=== PATIENT | female | born 1995 | race Hispanic/Latino ===

== ENCOUNTER 2019-07-25 06:03 | Inpatient (IN) ==
[2019-07-25] MEDS ORDERED: PEPCID PO PRN ×2 (06:22)
[2019-07-25] MEDS ORDERED: PEPCID IV PRN (06:22)
[2019-07-25] MEDS ORDERED: KEFZOL 1 GM/D5W 1 GM/50 ML IVPB IV PRN (06:22)
[2019-07-25] MEDS ORDERED: REGLAN PO PRN (06:22)
[2019-07-25] MEDS ORDERED: ZOFRAN IV PRN (06:22)
[2019-07-25] MEDS ORDERED: STADOL IV PRN (06:22)
[2019-07-25] MEDS ORDERED: LR 1,000 ML ONE (06:23)
[2019-07-25] MEDS ORDERED: XYLOCAINE-MPF 1% INJ ONE (06:26)
[2019-07-25] MEDS ORDERED: SODIUM CHLORIDE 0.9% INJ SCH (06:30)
[2019-07-25] MEDS ORDERED: LR 1,000 ML IV SCH (06:30)
[2019-07-25] MEDS ORDERED: PITOCIN 30 UNITS/NS 30 UNIT/500 ML IV.SOLN IV SCH ×2 (06:30→09:45)
[2019-07-25 06:43] LABS: BASO# 0.01 X1000 (0.0-0.2); BASO% 0.2 % (0.0-0.8); EOS# 0.02 X1000 (0.0-0.7); EOS% 0.4 % (0.0-10.0); HEMOGLOBIN 10.2 g/dL (12.0-16.0); IMM GRAN# 0.02 X1000 (0.0-0.04); IMM GRAN% 0.4 % (0.0-0.5); LYMPH# 1.24 X1000 (1.2-3.4); LYMPH% 23.1 % (20.5-51.1); MCH 27.4 PG (27-31); MCHC 31.9 g/dL (33-37); MONO# 0.14 X1000 (0.11-0.59); MONO% 2.6 % (1.7-9.3); MPV 13.4 FL (7.4-10.4); NEUT# 3.93 X1000 (1.4-6.5); NEUT% 73.3 % (42.2-75.2); PLT 155 X1000 (130-400); RBC 3.72 XMIL (4.2-5.4); WBC 5.36 X1000 (4.8-10.8)
[2019-07-25 06:50] LABS: BILIRUBIN URINE SMALL (NEGATIVE); BLOOD URINE NEGATIVE (NEGATIVE); CLARITY CLEAR (CLEAR); COLOR YELLOW; GLUCOSE URINE NEGATIVE (NEGATIVE); KETONE URINE NEGATIVE (NEGATIVE); LEUKOCYTES URINE SMALL (NEGATIVE); NITRITE URINE NEGATIVE (NEGATIVE); PH URINE 6.5; PROTEIN URINE TRACE mg/dL (NEGATIVE); URINE SOURCE VOIDED; UROBILINOGEN URINE 0.2 EU/dL (0.2-1.0)
[2019-07-25 07:13] LABS: RUBELLA SCREEN NON IMMUNE (IMMUNE)
[2019-07-25 07:15] LABS: RAPID HIV PRESUMPTIVE NEGATIVE
[2019-07-25 07:21] LABS: RPR NON-REACTIVE (NONREACTIVE)
[2019-07-25] MEDS ORDERED: PITOCIN 20 UNITS/NS 20 UNITS/1,000 ML IV.SOLN ONE (08:34)
[2019-07-25] MEDS ORDERED: PITOCIN 20 UNITS/NS 20 UNITS/1,000 ML IV.SOLN IV SCH ×2 (08:45→09:45)
[2019-07-25] MEDS ORDERED: HYDROXYZINE IM PRN (09:39)
[2019-07-25] MEDS ORDERED: AMBIEN PO PRN (09:39)
[2019-07-25] MEDS ORDERED: XYLOCAINE-MPF 1% INJ PRN (09:39)
[2019-07-25] MEDS ORDERED: BENADRYL IV PRN (09:39)
[2019-07-25] MEDS ORDERED: PERI MEDS (DERMOPLAST/NUPERCAINAL/TUCKS) MISC PRN (09:39)
[2019-07-25] MEDS ORDERED: ATARAX PO PRN (09:39)
[2019-07-25] MEDS ORDERED: MINERAL OIL PO PRN (09:39)
[2019-07-25] MEDS ORDERED: BENADRYL PO PRN (09:39)
[2019-07-25] MEDS ORDERED: BOOSTRIX VACCINE IM ONE (09:39)
[2019-07-25] MEDS ORDERED: CYTOTEC PO PRN (09:39)
[2019-07-25] MEDS ORDERED: M-M-R II VACCINE SUBQ ONE (09:39)
[2019-07-25] MEDS ORDERED: PITOCIN IM PRN (09:39)
[2019-07-25] MEDS: MOTRIN PO PRN ×2 (10:32→21:11)
[2019-07-25] MEDS: STADOL IV ONE ×2 (12:29→12:51)
[2019-07-25 12:30] LABS: UR AMPHETAMINES QUAL NONE DETECTED (NONE DETECT); UR BARBITUATES QUAL NONE DETECTED (NONE DETECT); UR BENZODIAZEPIN QUAL NONE DETECTED (NONE DETECT); UR CANNABINOIDS QUAL NONE DETECTED (NONE DETECT); UR COCAINE QUAL NONE DETECTED (NONE DETECT); UR METHADONE QUAL NONE DETECTED (NONE DETECT); UR OPIATES QUAL NONE DETECTED (NONE DETECT); UR OXYCODONE QUAL NONE DETECTED (NONE DETECT); UR PCP QUAL NONE DETECTED (NONE DETECT)
[2019-07-25] MEDS ORDERED: METHERGINE IM ONE (12:58)
[2019-07-25] MEDS ORDERED: METHERGINE ONE (13:04)
--- NOTE | 2019-07-25 13:32 | HISTORY AND PHYSICAL ---
DATE OF PRESENTATION: 07/25/2019 HISTORY OF PRESENT ILLNESS: Ms. Maximino Chaidez is a 23-year-old G 4 P 3-0-0-3 at suspected term gestational age who presents to Labor and Delivery in active labor and no care. The patient reports contractions started at 2 a.m. today and progressively gotten closer in frequency and intensity. Reports good movements. Denies leakage of fluid or vaginal bleeding. PAST MEDICAL HISTORY: None. MEDICATIONS: vitamin. PAST SURGICAL HISTORY: None. ALLERGIES: No known drug allergies. OBSTETRICAL HISTORY: G 4 P 3, 3 prior vaginal deliveries. BILLER HISTORY: Denies STD exposure. SOCIAL HISTORY: Denies tobacco, alcohol, or drug use. FAMILY HISTORY: Noncontributory. VITAL SIGNS: Temperature 98.5 degrees Fahrenheit, pulse rate 73, respiration rate 19, blood pressure 121/78, O2 saturation 99% on room air. Weight 120 pounds, height 5 feet 4 inches, body mass index 26.9 kg/m2. PHYSICAL EXAMINATION: GENERAL: No acute distress, alert, awake, oriented x3. CARDIOVASCULAR: Regular rate and rhythm. Positive S1, S2. RESPIRATORY: Clear to auscultation bilaterally. Negative rhonchi, rales, or wheezing. ABDOMEN: Gravid, nontender to palpation. Contraction palpable. EXTREMITIES: No calf tenderness. STERILE VAGINAL EXAM: 10 cm dilated, 100% effaced, 0 station. Electronic monitoring: Category 1 tracing. LABORATORY: WBC is 5.36, hemoglobin 10.2, hematocrit 32, platelets 155. Glucose 95. Urine drug screen negative. RPR nonreactive. HIV negative. Rubella nonimmune. ASSESSMENT: Mrs. Maximino Chaidez is a 23-year-old 4 para 3-0-0-3 at suspected term gestational age who presents in active labor. PLAN: 1. Admit to Labor and Delivery for anticipated vaginal delivery. 2. Obtain labs for no care and routine labor labs. 3. Continue with electronic monitoring. 4. Patient counseled on risks of vaginal delivery not limited to bleeding, laceration, infection, and need for emergency delivery. The patient understands the risks and agrees to procedure. 5. IV ampicillin for prophylaxis. GBS unknown status.
--- NOTE | 2019-07-25 16:20 | OPERATIVE NOTE ---
PROCEDURE DATE: 07/25/2019 SURGEON: Dr. Philippe Melgar. WOOD PATTERNMAKER: None. PROCEDURE PERFORMED: Spontaneous vaginal delivery of twins. DESCRIPTION OF PROCEDURE: The patient delivered a viable male infant weighing 4 pounds 5 ounces with Apgars of 9 and 9 at 1 and 5 minutes respectively. The vertex was delivered spontaneously over intact perineum. No nuchal cord was identified. The anterior shoulders were delivered atraumatically by maternal expulsive efforts and the assistance of downward traction. The posterior shoulder delivered with maternal expulsive efforts and upward traction. The remainder of the fetus delivered spontaneously. Upon delivery the cord was clamped and cut. The was passed to the waiting tanning consultant staff. Cord blood was obtained for analysis. After cord was blood was obtained, the patient noted to be pushing and a 2nd gestational sac appeared at the perineum. Water Commissioner staff was informed of expected delivery of Baby B twin. Positioning of Baby B was identified and vertex prior to rupture of membranes status post ruptured membranes revealed clear amniotic fluid from baby B. The patient delivered a viable 2nd male weighing 5 pounds 10 ounces with Apgars of 9 and 10 at 1 and 5 minutes respectively. The vertex was delivered spontaneously over intact perineum. A loose nuchal cord was identified and reduced. The anterior shoulder was delivered atraumatically by maternal expulsive efforts with the assistance of downward traction. The posterior shoulder delivered with maternal expulsive efforts and upward traction. The remainder of the fetus delivered spontaneously. Upon delivery the cord was clamped and cut. The infant was passed to the waiting tanning consultant staff. Cord blood was obtained for analysis and both cords were marked appropriately to identify each cord as fetus A and fetus B cord. The placenta was then delivered spontaneously intact, a 3 vessel cord was noted x2. To enhance uterine contraction IV oxytocin was administered. The cervix, vagina and perineum were inspected for lacerations. A first-degree perineum laceration was identified. 1% lidocaine was injected, laceration repaired with 2-0 chromic in a running nonlocking fashion to reapproximate the laceration in layers. Good hemostasis was confirmed.
[2019-07-25 16:27] LABS: HIV ANTIBODY SCREEN SEE COMMENTS
[2019-07-25] MEDS: TYLENOL PO PRN (18:20)
[2019-07-25] MEDS: METHERGINE PO SCH ×2 (18:52→22:39)
[2019-07-25 20:12] LABS: BASO# 0.01 X1000 (0.0-0.2); BASO% 0.2 % (0.0-0.8); IMM GRAN# 0.03 X1000 (0.0-0.04); IMM GRAN% 0.5 % (0.0-0.5); LYMPH% 15.6 % (20.5-51.1); MCH 27.5 PG (27-31); MCV 85.9 FL (81-99); MONO# 0.28 X1000 (0.11-0.59); MONO% 4.4 % (1.7-9.3); MPV 12.6 FL (7.4-10.4); NEUT# 5.11 X1000 (1.4-6.5); NEUT% 79.3 % (42.2-75.2); PLT 111 X1000 (130-400); RBC 2.91 XMIL (4.2-5.4); RDW 12.8 % (11.5-14.5); WBC 6.43 X1000 (4.8-10.8)
[2019-07-25] MEDS: PERICOLACE PO SCH (21:11)
[2019-07-26] MEDS: METHERGINE PO SCH (01:01)
[2019-07-26] MEDS ORDERED: METHERGINE PO ONE (07:00)
[2019-07-26 07:38] LABS: BASO# 0.01 X1000 (0.0-0.2); BASO% 0.2 % (0.0-0.8); EOS# 0.04 X1000 (0.0-0.7); EOS% 0.7 % (0.0-10.0); HEMATOCRIT 24.6 % (37.0-47.0); HEMOGLOBIN 7.7 g/dL (12.0-16.0); LYMPH% 22.8 % (20.5-51.1); MCH 27.1 PG (27-31); MCHC 31.3 g/dL (33-37); MCV 86.6 FL (81-99); MONO# 0.26 X1000 (0.11-0.59); MONO% 4.6 % (1.7-9.3); MPV 12.6 FL (7.4-10.4); NEUT# 4.09 X1000 (1.4-6.5); NEUT% 71.7 % (42.2-75.2); PLT 117 X1000 (130-400); RBC 2.84 XMIL (4.2-5.4); RDW 12.9 % (11.5-14.5)
--- NOTE | 2019-07-26 10:34 | OB/GYN PROGRESS NOTE ---
Progress Note OB - . OB Progress Note: Vital Signs - 24 hr 07/25/19 10:45 07/25/19 11:42 07/25/19 12:45 Temperature 99.2 F Pulse Rate 66 65 65 Respiratory Rate 20 20 20 Blood Pressure 136/61 135/77 126/78 O2 Sat by Pulse Oximetry 100 100 100 07/25/19 12:50 07/25/19 13:00 07/25/19 13:10 Temperature Pulse Rate 63 65 62 Respiratory Rate 20 20 20 Blood Pressure 116/63 121/63 103/59 O2 Sat by Pulse Oximetry 99 99 99 07/25/19 13:30 07/25/19 13:50 07/25/19 14:00 Temperature 98.3 F Pulse Rate 53 L 55 L 53 L Respiratory Rate 20 20 20 Blood Pressure 144/92 147/88 142/69 O2 Sat by Pulse Oximetry 100 99 100 07/25/19 14:54 07/25/19 15:06 07/25/19 15:58 Temperature 97.8 F 97.1 F L Pulse Rate 61 56 L 62 Respiratory Rate 20 20 20 Blood Pressure 131/85 133/83 130/71 O2 Sat by Pulse Oximetry 100 100 100 07/25/19 16:56 07/25/19 18:06 07/25/19 20:00 Temperature 98.3 F 97.2 F L Pulse Rate 69 59 L 58 L Respiratory Rate 20 20 16 Blood Pressure 115/74 131/69 105/55 O2 Sat by Pulse Oximetry 100 100 100 07/26/19 00:00 07/26/19 04:00 07/26/19 07:25 Temperature 96.3 F L 98.1 F 97.2 F L Pulse Rate 62 64 65 Respiratory Rate 14 14 16 Blood Pressure 105/64 106/68 135/65 O2 Sat by Pulse Oximetry 100 100 100 Laboratory Results - last 24 hr 07/25/19 07/25/19 07/25/19 06:20 07:21 20:05 WBC 6.43 RBC 2.91 L Hgb 8.0 L D Hct 25.0 L D MCV 85.9 MCH 27.5 MCHC 32.0 L RDW Std Deviation 12.8 Plt Count 111 L MPV 12.6 H Immature Gran % (Auto) 0.5 Neut % (Auto) 79.3 H Lymph % (Auto) 15.6 L [place] % (Auto) 4.4 Eos % (Auto) 0.0 Baso % (Auto) 0.2 Immature Gran # (Auto) 0.03 Neut # (Auto) 5.11 Lymph # (Auto) 1.00 L [place] # (Auto) 0.28 Eos # (Auto) 0.00 Baso # (Auto) 0.01 Urine Opiates Screen NONE DETECTED Ur Oxycodone Screen NONE DETECTED Ur Methadone, Qual NONE DETECTED Ur Barbiturates Screen NONE DETECTED Ur Phencyclidine Scrn NONE DETECTED Ur Amphetamines Screen NONE DETECTED U Benzodiazepines Scrn NONE DETECTED Urine Cocaine Screen NONE DETECTED U Cannabinoids Screen NONE DETECTED HIV 1&2 Antibody Screen SEE COMMENTS 07/26/19 06:30 WBC 5.70 RBC 2.84 L Hgb 7.7 L Hct 24.6 L MCV 86.6 MCH 27.1 MCHC 31.3 L RDW Std Deviation 12.9 Plt Count 117 L MPV 12.6 H Immature Gran % (Auto) 0.0 Neut % (Auto) 71.7 Lymph % (Auto) 22.8 [place] % (Auto) 4.6 Eos % (Auto) 0.7 Baso % (Auto) 0.2 Immature Gran # (Auto) 0.00 Neut # (Auto) 4.09 Lymph # (Auto) 1.30 [place] # (Auto) 0.26 Eos # (Auto) 0.04 Baso # (Auto) 0.01 Urine Opiates Screen Ur Oxycodone Screen Ur Methadone, Qual Ur Barbiturates Screen Ur Phencyclidine Scrn Ur Amphetamines Screen U Benzodiazepines Scrn Urine Cocaine Screen U Cannabinoids Screen HIV 1&2 Antibody Screen Patient reports no complaints this morning. Lochia less than menses. AFVSS HEENT: NCAT CV: S1 S2 normal Lungs: clear to auscultation Abd: fundus firm 2 cm below umbilicus Ext: no edema A/P PPD #1 s/p of twins - no care anemia - start iron tabs po bid - continue methergine to complete course - continue ambulation - continue care plan discharge home tomorrow if stable.
[2019-07-26 11:39] LABS: HEPATITIS B SURFACE ANTIGEN SEE COMMENTS
[2019-07-26] MEDS: FERROUS SULFATE PO SCH ×2 (12:04→22:03)
[2019-07-26] MEDS: MOTRIN PO PRN ×2 (12:06→22:03)
[2019-07-26] MEDS: PERICOLACE PO SCH (22:03)
[2019-07-27] MEDS: TYLENOL PO PRN (06:15)
[2019-07-27 08:28] VITALS: BP 99/56
[2019-07-27] MEDS: MOTRIN PO PRN (08:31)
[2019-07-27] MEDS: FERROUS SULFATE PO SCH (08:31)
--- NOTE | 2019-07-27 09:27 | OB/GYN PROGRESS NOTE ---
Progress Note OB - . OB Progress Note: Vital Signs - 24 hr 07/26/19 12:08 07/26/19 20:00 07/27/19 08:27 Temperature 97.9 F 97.2 F L 97.6 F Pulse Rate 71 82 83 Respiratory Rate 16 16 18 Blood Pressure 115/76 99/57 99/56 O2 Sat by Pulse Oximetry 97 100 100 Laboratory Results - last 24 hr 07/25/19 06:30 Hep Bs Antigen SEE COMMENTS 23 yo PPD#2 s/p of TIUP at term, PPH, no PNC, gestational thrombocytopenia Patient seen and examined. No complaints. Pain controlled. She is tolerating a regular diet, denies nausea/vomiting. She notes minimal lochia. S/p methergine 0.2mg PO q 6 x 3 doses for PPH/uterine atony. She is ambulating in the room and voiding without difficulty. She is bottle feeding, infants in nursery currently. Physical Exam-General - PHYSICAL EXAM-ADULT Initial Vital Signs Reviewed: Yes - CONSTITUTIONAL General Appearance: appears well, alert - EYES Eyes: PERRL/EOMI - RESPIRATORY Respiratory: lungs clear, normal breath sounds - CARDIOVASCULAR Cardiovascular: normal peripheral pulses, regular rate, rhythm, no edema - GASTROINTESTINAL (ABDOMEN) Abdominal Exam: normal bowel sounds, soft, other (ATTP, fundus firm/below umbilicus) - MUSCULOSKELETAL Extremity: normal range of motion, non-tender, normal gait, no pedal edema Assessment/Plan - Assessment/Plan Assessment: 23 yo PPD#2 s/p of TIUP at term, no PNC, PPH, RNI, gestational thrombocytopenia 1. HD stable, afebrile, VS WNL, PP Hgb 7.7 2. s/p methergine 0.2mg PO Q 6 hrs x 3 doses for uterine atony 3. Iron 325mg PO BID for anemia 4. Platelet count stable, 111,000>117,000 5. MMR vaccine prior to discharge 6. Desires d/c home today
[2019-07-27] MEDS ORDERED: DEPO-PROVERA IM ONE (10:02)
--- NOTE | 2019-07-27 11:45 | DISCHARGE SUMMARY ---
ADMISSION DATE: 07/25/2019 DISCHARGE DATE: 07/27/2019 ADMITTING PHYSICIAN: Philippe Melgar DO. CONDITION ON DISCHARGE: Stable. FINAL DIAGNOSES: 1. A 23-year-old, 4, para 4-0-0-5, day #2 status post twin vaginal delivery at term. 2. No care. 3. hemorrhage. 4. Rubella nonimmune. HOSPITAL COURSE: The patient presented to labor and delivery with the complaint of contractions. She had no care this . She underwent a normal spontaneous vaginal delivery of a twin on 07/25/2019. She did have a hemorrhage and received methergine for uterine atony. This was given to her scheduled on day 1. hemoglobin was 7.7 and 24.6. She did not require a blood transfusion. She had no further vaginal bleeding. She denied any dizziness or lightheadedness. On day #2, she was deemed stable for discharge. She was ambulating and voiding without difficulty. Her pain was controlled. She noted minimal lochia. She is bottle-feeding. Discussed contraception methods and she desires a Depo shot prior to hospital discharge. She was started on iron b.i.d. for anemia. She will also receive the MMR vaccine prior to hospital discharge for her rubella nonimmune status. Discussed with patient the importance of care and followup in clinic. She voiced understanding. An [employer] engineering technical analyst was used for her entire visit on July 27, hourly sign language interpreter #[id number], hourly sign language interpreter's name is Avila. DISCHARGE MEDICATIONS: 1. Motrin 800 mg p.o. q.8 hours p.r.n. pain, dispense #30. 2. Ferrous sulfate 325 mg p.o. b.i.d., dispense #60 with 3 refills. 3. Akila-Colace 1 tablet p.o. at bedtime p.r.n. constipation, dispense #10, no refills. DISCHARGE INSTRUCTIONS: Patient instructed to notify doctor or come to the emergency room with temperature greater than 100.4 degrees Fahrenheit, vaginal bleeding greater than 1 pad an hour, severe abdominal pain, or lightheadedness/dizziness. Instructed to place nothing in her vagina for 6 weeks, no tampons/douching/sex. FOLLOW-UP APPOINTMENT: Patient instructed to call clinic and make an appointment for 6 weeks for care. Patient given clinic information and phone number. [facility]
== END 2019-07-27 13:55 | disposition home or self-care (01) | DRG 806 ==
LOC: EDBD → OPLD 06:03 → LD 06:17
PROVIDERS: ADMIT Obstetrics & Gynecology; ATTEND Obstetrics & Gynecology